=== PATIENT | male | born 1935 | race Two or more races ===

== ENCOUNTER 2024-11-19 17:14 | Inpatient (IN) | payer MEDICARE, OTHER ==
[~2024-11-19] VITALS: Ht 167.6 cm; Wt 58.7 kg
[~2024-11-19 17:14] MED LIST: ACET325T53 PO; APIX5TAB PO; ATOR10TA PO; CARV3.122 PO; DOCU-141 PO; FAMO-132 PO; Lactose-Free Food PO; MAGN400O6 PO; MULT-1045 PO; PANT40TA49 PO; SENN8.6T19 PO; TEMA15CA PO
[2024-11-19] MEDS: AZITHROMYCIN IV 500 MG in IV DEXTROSE 5% 250 ML IV ONE (17:30)
[2024-11-19] MEDS ORDERED: ACET325T53 PO (17:43)
[2024-11-19] MEDS ORDERED: ACET500C4 PO (17:43)
[2024-11-19] MEDS ORDERED: AMIO100T4 PO (17:44)
[2024-11-19] MEDS ORDERED: ATOR80TA PO (17:45)
[2024-11-19] MEDS ORDERED: MIDO2.5T PO (17:46)
[2024-11-19] MEDS ORDERED: DOCU100C36 PO (17:47)
[2024-11-19] MEDS ORDERED: BISA10SU95 RC (17:49)
[2024-11-19] MEDS ORDERED: NA P230E RC (17:50)
[2024-11-19] MEDS ORDERED: MAGN400O6 PO (17:51)
[2024-11-19] MEDS ORDERED: MULT-594 PO (17:53)
[2024-11-19] MEDS ORDERED: POLY17PO4 PO (17:53)
[2024-11-19] MEDS ORDERED: PANT40TA49 PO (17:54)
[2024-11-19 17:58] LABS: ABG BASE EXCESS -0.6 mmol/L (-2.0-3.0); ABG HCO3 21.2 mmol/L (21.0-28.0); ABG PCO2 26.8 mmHg (35.0-48.0); ABG PH 7.517 (7.350-7.450); ABG PO2 114.6 mmHg (83.0-108.0); ABG SITE LEFT RADIAL; ABG TOTAL HEMOGLOBIN 11.3 G/dL (13.5-17.5); AaDO2 98.6 mmHg; FIO2 28.0 %; FLOW, BLOOD GAS 2.00 L/min (0.00-30.00)
[2024-11-19] MEDS ORDERED: PROT946L PO (17:58)
[2024-11-19] MEDS ORDERED: CEFTRIAXONE /D5W 50ML IVPB **ER PYXIS IV ONE (17:59)
[2024-11-19] MEDS ORDERED: SACU1TAB PO (18:00)
[2024-11-19] MEDS ORDERED: SENN8.6C5 PO (18:00)
[2024-11-19] MEDS: IV NORMAL SALINE 1000 ML BAG IV ONE (18:04)
[2024-11-19] MEDS ORDERED: APIX2.5T PO (18:27)
[2024-11-19] MEDS ORDERED: MULT-213 PO (18:32)
[2024-11-19] MEDS ORDERED: AZITHROMYCIN 500MG/ D5W 250ML IVPB **ER PYXIS ONLY IV ONE (18:39)
[2024-11-19 18:47] LABS: *BILIRUBIN,URIN NEGATIVE (NEGATIVE); *BLOOD, URINE 3+ (NEGATIVE); *COLOR,URINE DARK YELLOW (YELLOW); *KETONES,URINE TRACE (NEGATIVE); *PROTEIN,URINE 2+ (NEGATIVE); *UROBILINOGEN,URINE 1.0 E.U./dl (NORMAL); LEUKOCYTE ESTERASE ,URINE 1+ (NEGATIVE); NITRITE, URINE POSITIVE (NEGATIVE); UGLUCOSE NEGATIVE (NEGATIVE)
[2024-11-19 18:52] LABS: *CLARITY,URINE HAZY (CLEAR)
[2024-11-19 18:55] LABS: SQUAMOUS EPITHELIAL CELL,UR MODERATE /HPF (NONE SEEN)
[2024-11-19] MEDS ORDERED: CLINDAMYCIN 600 MG PIGGYBACK**ER OMNI IV ONE (19:44)
[2024-11-19] MEDS: CLINDAMYCIN PHOSPHATE IV 600 MG in IV DEXTROSE 5% 100 ML IV ONE (19:55)
[2024-11-19 21:10] LABS: PLATELET COUNT (AUTO) 223 K/uL (152-348); RED BLOOD CELL COUNT(AUTO) 3.48 MIL/uL (4.06-5.63); RED CELL DISTRIBUTION WIDTH 16.0 % (12.1-16.2); WHITE BLOOD COUNT (AUTO) 7.8 K/uL (3.6-10.2)
[2024-11-19 21:18] LABS: CREATININE 1.3 mg/dL (0.6-1.3); SODIUM SERUM 140 mmol/L (136-145); UREA NITROGEN, BLOOD 43 mg/dL (7-18)
[2024-11-19 21:24] LABS: ASPARTATE AMINOTRANSFERASE 89 U/L (15-37); TOTAL PROTEIN, SERUM 6.3 g/dL (6.4-8.2)
[2024-11-19 21:31] LABS: LACTIC ACID 5.4 mmol/L (0.4-2.0)
[2024-11-20] VITALS (15 sets, daily range): BP systolic 101–128; BP diastolic 55–73; TEMP 97.6–97.7; O2SAT 95–100
[2024-11-20] MEDS ORDERED: FUROSEMIDE 20 MG/2 ML VIAL ONE (00:16)
[2024-11-20] MEDS: FUROSEMIDE 20 MG/2 ML VIAL IV ONE (00:23)
[2024-11-20] MEDS ORDERED: ONDANSETRON 4 MG/2 ML VIAL IV PRN (01:45)
[2024-11-20] MEDS ORDERED: REMEDY ESSENTIAL ZINC PASTE 113 GM TP PRN (01:45)
[2024-11-20] MEDS ORDERED: FUROSEMIDE 40 MG/4 ML VIAL ONE (03:15)
[2024-11-20] MEDS ORDERED: SODIUM BICARBONATE 8.4% 50 MEQ/50 ML DISP.SYRIN IV ONE ×2 (03:15→03:31)
[2024-11-20] MEDS: FUROSEMIDE 40 MG/4 ML VIAL IV ONE ×2 (03:18→06:22)
[2024-11-20] MEDS: SODIUM BICARBONATE 8.4% 50 MEQ/50 ML DISP.SYRIN IV ONE (03:35)
[2024-11-20 03:47] LABS: ABG BASE EXCESS -11.1 mmol/L (-2.0-3.0); ABG HCO3 15.4 mmol/L (21.0-28.0); ABG PCO2 36.8 mmHg (35.0-48.0); ABG PH 7.240 (7.350-7.450); ABG PO2 < 40.5 mmHg (83.0-108.0); ABG SITE LEFT FEMORAL; ABG TOTAL HEMOGLOBIN 11.5 G/dL (13.5-17.5); AaDO2 67.2 mmHg; SET RATE, BG 20.0
[2024-11-20 03:59] LABS: CREATININE 1.6 mg/dL (0.6-1.3); SODIUM SERUM 141 mmol/L (136-145); UREA NITROGEN, BLOOD 48 mg/dL (7-18)
[2024-11-20] MEDS ORDERED: VANCOMYCIN IV 200 ML ONE (05:41)
[2024-11-20] MEDS ORDERED: CEFEPIME HCL 2 GM VIAL ONE (05:41)
[2024-11-20] MEDS: CEFEPIME HCL 2 GM in IV DEXTROSE 5% 100 ML IV SCH (06:06)
[2024-11-20 06:32] LABS: PLATELET COUNT (AUTO) 193 K/uL (152-348); RED BLOOD CELL COUNT(AUTO) 3.91 MIL/uL (4.06-5.63); RED CELL DISTRIBUTION WIDTH 16.1 % (12.1-16.2); WHITE BLOOD COUNT (AUTO) 12.5 K/uL (3.6-10.2)
[2024-11-20] MEDS: VANCOMYCIN IV 1,000 MG in IV NORMAL SALINE 250 ML IV ONE (06:59)
[2024-11-20] MEDS ORDERED: ENOXAPARIN SODIUM 60 MG/0.6 ML DISP.SYRIN SQ SCH (09:00)
[2024-11-20] MEDS ORDERED: ENOXAPARIN SODIUM 40 MG/0.4 ML DISP.SYRIN SQ SCH (10:36)
[2024-11-20] MEDS ORDERED: ENOXAPARIN SODIUM 30 MG/0.3 ML DISP.SYRIN ONE (11:06)
[2024-11-20] MEDS: ENOXAPARIN SODIUM 30 MG/0.3 ML DISP.SYRIN SUBCUT SCH (11:23)
[2024-11-20] MEDS: FUROSEMIDE 40 MG/4 ML VIAL IV SCH (13:14)
[2024-11-20] MEDS: AZITHROMYCIN IV 250 MG in IV DEXTROSE 5% 250 ML IV SCH (16:20)
[2024-11-20] MEDS: PIPERACILLIN SODIUM/TAZOBACTAM 3.375 G in IV DEXTROSE 5% 50 ML IV SCH (18:00)
[2024-11-20 21:17] LABS: CREATININE 1.8 mg/dL (0.6-1.3); SODIUM SERUM 142 mmol/L (136-145); TOTAL PROTEIN, SERUM 6.4 g/dL (6.4-8.2); UREA NITROGEN, BLOOD 58 mg/dL (7-18)
[2024-11-20 22:09] LABS: ASPARTATE AMINOTRANSFERASE 4250 U/L (15-37)
[2024-11-21] VITALS (26 sets, daily range): BP systolic 102–125; BP diastolic 50–75; TEMP 97.7–98.1; O2SAT 94–100
[2024-11-21] MEDS: PIPERACILLIN SODIUM/TAZOBACTAM 3.375 G in IV DEXTROSE 5% 100 ML IV SCH (01:22)
[2024-11-21 05:24] LABS: PLATELET COUNT (AUTO) 194 K/uL (152-348); RED BLOOD CELL COUNT(AUTO) 4.12 MIL/uL (4.06-5.63); RED CELL DISTRIBUTION WIDTH 15.1 % (12.1-16.2); WHITE BLOOD COUNT (AUTO) 10.2 K/uL (3.6-10.2)
[2024-11-21 05:43] LABS: LACTIC ACID 2.7 mmol/L (0.4-2.0)
[2024-11-21 05:47] LABS: ASPARTATE AMINOTRANSFERASE 1158 U/L (15-37); CREATINE KINASE, TOTAL 518 U/L (39-308); CREATININE 1.8 mg/dL (0.6-1.3); SODIUM SERUM 142 mmol/L (136-145); TOTAL PROTEIN, SERUM 6.6 g/dL (6.4-8.2); UREA NITROGEN, BLOOD 59 mg/dL (7-18)
[2024-11-21] MEDS ORDERED: FUROSEMIDE 40 MG/4 ML VIAL IV SCH (09:00)
[2024-11-21] MEDS: FUROSEMIDE 40 MG/4 ML VIAL IV SCH (09:18)
[2024-11-21 13:35] LABS: ABG BASE EXCESS 0.9 mmol/L (-2.0-3.0); ABG HCO3 22.9 mmol/L (21.0-28.0); ABG PCO2 28.3 mmHg (35.0-48.0); ABG PH 7.526 (7.350-7.450); ABG PO2 118.1 mmHg (83.0-108.0); ABG SITE LEFT RADIAL; ABG TOTAL HEMOGLOBIN 11.3 G/dL (13.5-17.5); AaDO2 98.7 mmHg; FIO2 40.0 %; FLOW, BLOOD GAS 5.00 L/min (0.00-30.00)
[2024-11-21] MEDS: DEXTROSE 5% IV SCH (14:01)
[2024-11-21] MEDS: CEFEPIME IV SCH (14:01)
[2024-11-21 14:20] LABS: HIV-1/2 ANTIBODY NON REACTIVE (NONREACTIVE)
[2024-11-21] MEDS: VANCOMYCIN HCL 750 MG in IV DEXTROSE 5% 250 ML IV SCH (19:09)
[2024-11-22] VITALS (68 sets, daily range): BP systolic 72–121; BP diastolic 30–72; TEMP 97.8–98.1; O2SAT 100
[2024-11-22 03:09] LABS: PTH, INTACT 52 pg/mL (15-65)
[2024-11-22 05:11] LABS: PLATELET COUNT (AUTO) 230 K/uL (152-348); RED BLOOD CELL COUNT(AUTO) 4.11 MIL/uL (4.06-5.63); RED CELL DISTRIBUTION WIDTH 15.0 % (12.1-16.2); WHITE BLOOD COUNT (AUTO) 9.5 K/uL (3.6-10.2)
[2024-11-22 05:29] LABS: ASPARTATE AMINOTRANSFERASE 2011 U/L (15-37); CREATININE 2.0 mg/dL (0.6-1.3); SODIUM SERUM 144 mmol/L (136-145); TOTAL PROTEIN, SERUM 6.7 g/dL (6.4-8.2); UREA NITROGEN, BLOOD 54 mg/dL (7-18)
[2024-11-22 06:04] LABS: ABG BASE EXCESS 3.5 mmol/L (-2.0-3.0); ABG HCO3 26.3 mmol/L (21.0-28.0); ABG PCO2 34.0 mmHg (35.0-48.0); ABG PH 7.507 (7.350-7.450); ABG PO2 64.8 mmHg (83.0-108.0); ABG SITE LEFT RADIAL; ABG TOTAL HEMOGLOBIN 12.5 G/dL (13.5-17.5); AaDO2 94.6 mmHg; FIO2 21.0 %
[2024-11-22] MEDS: DOBUTamine IV 250 ML IV PRN (09:15)
[2024-11-22] MEDS: MEROPENEM 500 MG in IV NORMAL SALINE 50 ML IV SCH (11:08)
[2024-11-22] MEDS: POTASSIUM CHLORIDE 10 MEQ TAB.PRT.SR PO ONE (11:32)
[2024-11-22] MEDS ORDERED: MEROPENEM 500 MG in IV NORMAL SALINE 50 ML IV SCH (14:00)
[2024-11-22] MEDS: NOREPINEPHRINE 8MG/NS 250ML 250 ML IV PRN (16:49)
[2024-11-22 23:11] LABS: HEPATITIS A AB, IgM Negative (Negative); HEPATITIS B CORE AB, TOTAL Negative (Negative); HEPATITIS B SURFACE AB, QUAL Non Reactive (.); HEPATITIS B SURFACE AG Negative (Negative); HEPATITIS C VIRUS ANTIBODY Non Reactive (Non Reactive)
[2024-11-23] VITALS (97 sets, daily range): BP systolic 79–126; BP diastolic 40–89; TEMP 97.8–99.6; O2SAT 93–100
[2024-11-23 05:21] LABS: PLATELET COUNT (AUTO) 226 K/uL (152-348); RED BLOOD CELL COUNT(AUTO) 3.84 MIL/uL (4.06-5.63); RED CELL DISTRIBUTION WIDTH 14.8 % (12.1-16.2); WHITE BLOOD COUNT (AUTO) 8.6 K/uL (3.6-10.2)
[2024-11-23 05:27] LABS: CREATININE 1.5 mg/dL (0.6-1.3); SODIUM SERUM 146 mmol/L (136-145); UREA NITROGEN, BLOOD 64 mg/dL (7-18)
[2024-11-23 05:51] LABS: ASPARTATE AMINOTRANSFERASE 1578.0 U/L (15-37); TOTAL PROTEIN, SERUM 6.3 g/dL (6.4-8.2)
[2024-11-23] MEDS: DOBUTamine IV 250 ML IV PRN (06:44)
[2024-11-23] MEDS: POTASSIUM CHLORIDE 50 ML IV SCH (08:16)
[2024-11-23] MEDS: MEROPENEM 1 G in IV NORMAL SALINE 100 ML IV SCH (10:49)
[2024-11-23] MEDS ORDERED: DOCUSATE SODIUM 100 MG CAPSULE PO PRN (12:00)
[2024-11-23] MEDS ORDERED: BISACODYL 10 MG SUPP.RECT RC PRN (12:00)
[2024-11-23] MEDS: AMIODARONE HCL 200 MG TABLET PO SCH (12:37)
[2024-11-23] MEDS: APIXABAN 2.5 MG TABLET PO SCH (12:38)
[2024-11-23] MEDS: MIDODRINE HCL 2.5 MG TABLET PO SCH (14:03)
[2024-11-23] MEDS ORDERED: DOBUTamine IV 250 ML IV PRN ×2 (18:45)
[2024-11-24] VITALS (97 sets, daily range): BP systolic 95–134; BP diastolic 47–105; TEMP 97.8–99; O2SAT 92–100
[2024-11-24 05:01] LABS: PLATELET COUNT (AUTO) 242 K/uL (152-348); RED BLOOD CELL COUNT(AUTO) 4.02 MIL/uL (4.06-5.63); RED CELL DISTRIBUTION WIDTH 15.2 % (12.1-16.2); WHITE BLOOD COUNT (AUTO) 9.9 K/uL (3.6-10.2)
[2024-11-24 05:05] LABS: CREATININE 1.5 mg/dL (0.6-1.3); SODIUM SERUM 149 mmol/L (136-145); UREA NITROGEN, BLOOD 59 mg/dL (7-18)
[2024-11-24] MEDS: DOBUTamine IV 250 ML IV PRN (08:53)
[2024-11-24] MEDS: ACETAMINOPHEN 325 MG TABLET PO PRN (09:38)
[2024-11-24] MEDS: HYDROCODONE/APAP 5-325MG TABLET PO PRN (14:17)
[2024-11-25] VITALS (92 sets, daily range): BP systolic 96–136; BP diastolic 39–120; TEMP 96.5–98.9; O2SAT 87–100
[2024-11-25 05:05] LABS: PLATELET COUNT (AUTO) 251 K/uL (152-348); RED BLOOD CELL COUNT(AUTO) 4.23 MIL/uL (4.06-5.63); RED CELL DISTRIBUTION WIDTH 15.1 % (12.1-16.2); WHITE BLOOD COUNT (AUTO) 8.7 K/uL (3.6-10.2)
[2024-11-25 05:19] LABS: CREATININE 1.3 mg/dL (0.6-1.3); SODIUM SERUM 150 mmol/L (136-145); UREA NITROGEN, BLOOD 57 mg/dL (7-18)
[2024-11-25 05:30] LABS: ASPARTATE AMINOTRANSFERASE 493.0 U/L (15-37); TOTAL PROTEIN, SERUM 7.1 g/dL (6.4-8.2)
[2024-11-25] MEDS: IV D5W 1000ML 1,000 ML IV PRN (12:04)
[2024-11-25] MEDS ORDERED: HEPARIN/D5W 25000 UNITS/500 ML BAG IV ONE (18:45)
[2024-11-25] MEDS: IV NORMAL SALINE 500 ML IV ONE (19:23)
[2024-11-25] MEDS ORDERED: IOHEXOL 350 100 ML INFUS..BTL ONE (19:30)
[2024-11-25] MEDS: HEPARIN SODIUM,PORCINE 5,000 UNITS/ML VIAL IV ONE (20:13)
[2024-11-25] MEDS: HEPARIN/D5W DRIP 500 ML IV PRN (20:23)
[2024-11-26] VITALS (98 sets, daily range): BP systolic 100–141; BP diastolic 54–124; TEMP 97.7–99.2; O2SAT 92–100
[2024-11-26 03:55] LABS: PLATELET COUNT (AUTO) 201 K/uL (152-348); RED BLOOD CELL COUNT(AUTO) 3.79 MIL/uL (4.06-5.63); RED CELL DISTRIBUTION WIDTH 15.0 % (12.1-16.2); WHITE BLOOD COUNT (AUTO) 13.5 K/uL (3.6-10.2)
[2024-11-26 04:13] LABS: CREATININE 1.4 mg/dL (0.6-1.3); SODIUM SERUM 147 mmol/L (136-145); UREA NITROGEN, BLOOD 62 mg/dL (7-18)
[2024-11-26] MEDS: MORPHINE SULFATE 2 MG/1 ML DISP.SYRIN IV PRN (07:52)
[2024-11-27] VITALS (98 sets, daily range): BP systolic 74–140; BP diastolic 40–113; TEMP 97.9–100.1; O2SAT 92–100
[2024-11-27 05:25] LABS: PLATELET COUNT (AUTO) 233 K/uL (152-348); RED BLOOD CELL COUNT(AUTO) 4.13 MIL/uL (4.06-5.63); RED CELL DISTRIBUTION WIDTH 15.4 % (12.1-16.2); WHITE BLOOD COUNT (AUTO) 13.3 K/uL (3.6-10.2)
[2024-11-27 05:39] LABS: CREATININE 1.2 mg/dL (0.6-1.3); SODIUM SERUM 148 mmol/L (136-145); UREA NITROGEN, BLOOD 57 mg/dL (7-18)
[2024-11-27] MEDS: POTASSIUM CHLORIDE 50 ML IV SCH (08:33)
[2024-11-27] MEDS: ARGININE/GLUTAMINE/CALCIUM BMB 1 EACH POWD.PACK PO SCH (16:48)
[2024-11-28] VITALS (49 sets, daily range): BP systolic 88–150; BP diastolic 44–130; TEMP 98.1–98.6; O2SAT 80–100
[2024-11-28 05:05] LABS: PLATELET COUNT (AUTO) 222 K/uL (152-348); RED BLOOD CELL COUNT(AUTO) 4.26 MIL/uL (4.06-5.63); RED CELL DISTRIBUTION WIDTH 15.4 % (12.1-16.2); WHITE BLOOD COUNT (AUTO) 17.0 K/uL (3.6-10.2)
[2024-11-28 05:18] LABS: ASPARTATE AMINOTRANSFERASE 230 U/L (15-37); CREATININE 1.5 mg/dL (0.6-1.3); SODIUM SERUM 147 mmol/L (136-145); TOTAL PROTEIN, SERUM 6.4 g/dL (6.4-8.2); UREA NITROGEN, BLOOD 64 mg/dL (7-18)
[2024-11-28] MEDS: FUROSEMIDE 40 MG/4 ML VIAL IV SCH (10:09)
[2024-11-28] MEDS: POTASSIUM CHLORIDE 20 MEQ POWDER PACKET PO ONE (10:59)
[2024-11-28] MEDS ORDERED: MAGNESIUM HYDROXIDE 30 ML LIQUID UDC PO PRN (13:00)
[2024-11-28] MEDS ORDERED: BISACODYL 10 MG SUPP.RECT RC PRN (13:00)
[2024-11-28] MEDS: APIXABAN 5 MG TABLET PO SCH (16:16)
[2024-11-29] VITALS (18 sets, daily range): BP systolic 104–174; BP diastolic 47–126; TEMP 97.6–98.4; O2SAT 91–100
[2024-11-29 05:09] LABS: PLATELET COUNT (AUTO) 190 K/uL (152-348); RED BLOOD CELL COUNT(AUTO) 4.53 MIL/uL (4.06-5.63); RED CELL DISTRIBUTION WIDTH 15.5 % (12.1-16.2); WHITE BLOOD COUNT (AUTO) 14.5 K/uL (3.6-10.2)
[2024-11-29 05:23] LABS: ASPARTATE AMINOTRANSFERASE 237 U/L (15-37); CREATININE 1.5 mg/dL (0.6-1.3); SODIUM SERUM 143 mmol/L (136-145); TOTAL PROTEIN, SERUM 7.2 g/dL (6.4-8.2); UREA NITROGEN, BLOOD 71 mg/dL (7-18)
[2024-11-30] VITALS (10 sets, daily range): BP systolic 93–129; BP diastolic 19–78; TEMP 98.2–99.6; O2SAT 90–100
[2024-11-30] MEDS: BUMETANIDE 1 MG TABLET PO SCH (09:24)
[2024-11-30 09:36] LABS: PLATELET COUNT (AUTO) 199 K/uL (152-348); RED BLOOD CELL COUNT(AUTO) 4.11 MIL/uL (4.06-5.63); RED CELL DISTRIBUTION WIDTH 15.7 % (12.1-16.2); WHITE BLOOD COUNT (AUTO) 17.0 K/uL (3.6-10.2)
[2024-11-30 09:53] LABS: CREATININE 1.1 mg/dL (0.6-1.3); SODIUM SERUM 148 mmol/L (136-145); UREA NITROGEN, BLOOD 61 mg/dL (7-18)
[2024-11-30 15:56] LABS: FREE PSA 0.16 ng/mL (0.00-45)
[2024-11-30 16:06] LABS: A/G RATIO 0.7 (0.7-1.7); BETA GLOBULIN 0.8 g/dL (0.7-1.3); GLOBULIN, TOTAL 3.6 g/dL (2.2-3.9); M-SPIKE Not Observed g/dL (Not Observed); PROTEIN, TOTAL 6.1 g/dL (6.0-8.5)
[2024-12-01] VITALS (8 sets, daily range): BP systolic 94–138; BP diastolic 50–63; TEMP 97–99.6; O2SAT 93–99
[2024-12-01 07:16] LABS: PLATELET COUNT (AUTO) 222 K/uL (152-348); RED BLOOD CELL COUNT(AUTO) 4.28 MIL/uL (4.06-5.63); RED CELL DISTRIBUTION WIDTH 15.1 % (12.1-16.2); WHITE BLOOD COUNT (AUTO) 18.8 K/uL (3.6-10.2)
[2024-12-01 07:40] LABS: ASPARTATE AMINOTRANSFERASE 256 U/L (15-37); CREATININE 1.1 mg/dL (0.6-1.3); SODIUM SERUM 153 mmol/L (136-145); TOTAL PROTEIN, SERUM 6.6 g/dL (6.4-8.2); UREA NITROGEN, BLOOD 62 mg/dL (7-18)
[2024-12-01] MEDS: POTASSIUM CHLORIDE 20 MEQ POWDER PACKET PO ONE (10:49)
[2024-12-02] VITALS (8 sets, daily range): BP systolic 101–127; BP diastolic 44–60; TEMP 98.1–98.8; O2SAT 96–100
[2024-12-02 06:52] LABS: PLATELET COUNT (AUTO) 212 K/uL (152-348); RED BLOOD CELL COUNT(AUTO) 3.95 MIL/uL (4.06-5.63); RED CELL DISTRIBUTION WIDTH 15.4 % (12.1-16.2); WHITE BLOOD COUNT (AUTO) 18.2 K/uL (3.6-10.2)
[2024-12-02 07:09] LABS: CREATININE 0.9 mg/dL (0.6-1.3); UREA NITROGEN, BLOOD 61 mg/dL (7-18)
[2024-12-02 08:06] LABS: SODIUM SERUM 158 mmol/L (136-145)
[2024-12-02 09:25] LABS: ABG BASE EXCESS 10.3 mmol/L (-2.0-3.0); ABG HCO3 33.7 mmol/L (21.0-28.0); ABG PCO2 39.9 mmHg (35.0-48.0); ABG PH 7.544 (7.350-7.450); ABG PO2 95.9 mmHg (83.0-108.0); ABG SITE LEFT RADIAL; ABG TOTAL HEMOGLOBIN 13.0 G/dL (13.5-17.5); AaDO2 98.0 mmHg; FIO2 2.0 %; FLOW, BLOOD GAS 28.00 L/min (0.00-30.00)
[2024-12-02] MEDS: IV D5W 1000ML 1,000 ML IV PRN (09:52)
[2024-12-02] MEDS: POTASSIUM CHLORIDE 20 MEQ POWDER PACKET PO ONE (10:01)
[2024-12-03 04:37] VITALS: BP 123/50; TEMP 97.8; O2SAT 98
[2024-12-03 06:46] LABS: PLATELET COUNT (AUTO) 202 K/uL (152-348); RED BLOOD CELL COUNT(AUTO) 3.80 MIL/uL (4.06-5.63); RED CELL DISTRIBUTION WIDTH 15.7 % (12.1-16.2); WHITE BLOOD COUNT (AUTO) 16.2 K/uL (3.6-10.2)
[2024-12-03 07:09] LABS: ASPARTATE AMINOTRANSFERASE 208 U/L (15-37); CREATININE 0.8 mg/dL (0.6-1.3); SODIUM SERUM 153 mmol/L (136-145); TOTAL PROTEIN, SERUM 5.9 g/dL (6.4-8.2); UREA NITROGEN, BLOOD 53 mg/dL (7-18)
[2024-12-03 08:03] VITALS: BP 122/52; TEMP 97.7; O2SAT 98
[2024-12-03] MEDS: POTASSIUM CHLORIDE 50 ML IV SCH (10:18)
[2024-12-03] MEDS ORDERED: POTASSIUM PHOSPHATE MM 15 MMOL in IV NORMAL SALINE 250 ML IV ONE (11:00)
[2024-12-03] MEDS: POTASSIUM PHOSPHATE MM 15 MMOL in IV NORMAL SALINE 250 ML IV ONE (11:42)
[2024-12-03 11:50] VITALS: BP 113/50; TEMP 99; O2SAT 99
[2024-12-03 16:00] VITALS: BP 103/50; TEMP 98.5; O2SAT 100
[2024-12-03 19:31] VITALS: BP 102/28; TEMP 99.6; O2SAT 92
[2024-12-03 21:11] VITALS: O2SAT 98
[2024-12-04 05:40] VITALS: BP 105/51; TEMP 99.4; O2SAT 95
[2024-12-04 06:43] LABS: PLATELET COUNT (AUTO) 186 K/uL (152-348); RED BLOOD CELL COUNT(AUTO) 3.58 MIL/uL (4.06-5.63); RED CELL DISTRIBUTION WIDTH 15.6 % (12.1-16.2); WHITE BLOOD COUNT (AUTO) 14.1 K/uL (3.6-10.2)
[2024-12-04 07:09] LABS: CREATININE 0.9 mg/dL (0.6-1.3); SODIUM SERUM 135 mmol/L (136-145); UREA NITROGEN, BLOOD 44 mg/dL (7-18)
[2024-12-04] MEDS ORDERED: BUME1TAB8 PO (08:07)
[2024-12-04] MEDS ORDERED: APIX5TAB PO (08:07)
[2024-12-04] MEDS ORDERED: MIDO2.5T2 PO (08:07)
[2024-12-04] MEDS: POTASSIUM CHLORIDE 20 MEQ POWDER PACKET GT ONE (10:00)
[2024-12-04] MEDS: POTASSIUM CHLORIDE 50 ML IV SCH (10:01)
[2024-12-04 11:39] VITALS: BP 119/58; TEMP 98; O2SAT 97
[2024-12-04 14:30] VITALS: O2SAT 97
[2024-12-04 15:48] VITALS: BP 118/64; TEMP 99.2; O2SAT 94
[2024-12-05] MEDS ORDERED: APIXABAN 5 MG TABLET PO SCH (09:00)
== END 2024-12-04 17:40 | DRG 871 ==
LOC: ER 17:14 → TELE3 23:01 → TELE-TD3 11-20 05:22 → DOU3 11-20 05:23 → TELE-TD3 11-20 05:27 → DOU3 11-20 06:25 → TELE3 11-20 07:02 → CCUOV 11-20 12:13 → CCU 11-20 12:29 → TELE3 11-29 15:57 → MEDSURG3 12-03 14:08
PROVIDERS: ADMIT Registered Nurse Psychiatric/Mental Health; ATTEND Nurse Practitioner Family
PROC: 5A09457 Assistance with Respiratory Ventilation, 24-96 Consecutive Hours, Continuous Positive Airway Pressure (ICD-10-PCS; principal; 2024-11-20)
PROC: 05H933Z Insertion of Infusion Device into Right Brachial Vein, Percutaneous Approach (ICD-10-PCS; 2024-11-21)
PROC: 02HV33Z Insertion of Infusion Device into Superior Vena Cava, Percutaneous Approach (ICD-10-PCS; 2024-11-26)
DX: A41.9 Sepsis, unspecified organism (principal); I21.4 Non-ST elevation (NSTEMI) myocardial infarction; J15.69 Pneumonia due to other Gram-negative bacteria; J96.01 Acute respiratory failure with hypoxia; N17.0 Acute kidney failure with tubular necrosis; K72.00 Acute and subacute hepatic failure without coma; R65.21 Severe sepsis with septic shock; I50.23 Acute on chronic systolic (congestive) heart failure; J96.02 Acute respiratory failure with hypercapnia; R57.0 Cardiogenic shock; N39.0 Urinary tract infection, site not specified; Z16.12 Extended spectrum beta lactamase (ESBL) resistance; Z66 Do not resuscitate; E87.20 Acidosis, unspecified; F01.54 Vascular dementia, unspecified severity, with anxiety; F01.53 Vascular dementia, unspecified severity, with mood disturbance; E87.1 Hypo-osmolality and hyponatremia; E87.0 Hyperosmolality and hypernatremia; E44.0 Moderate protein-calorie malnutrition; I70.222 Atherosclerosis of native arteries of extremities with rest pain, left leg; B96.20 Unspecified Escherichia coli [E. coli] as the cause of diseases classified elsewhere; I11.0 Hypertensive heart disease with heart failure; I48.0 Paroxysmal atrial fibrillation; I25.10 Atherosclerotic heart disease of native coronary artery without angina pectoris; K21.9 Gastro-esophageal reflux disease without esophagitis; E88.09 Other disorders of plasma-protein metabolism, not elsewhere classified; I69.319 Unspecified symptoms and signs involving cognitive functions following cerebral infarction; N40.0 Benign prostatic hyperplasia without lower urinary tract symptoms; R26.81 Unsteadiness on feet; E87.6 Hypokalemia; E87.5 Hyperkalemia; I25.5 Ischemic cardiomyopathy; I08.3 Combined rheumatic disorders of mitral, aortic and tricuspid valves; I25.2 Old myocardial infarction; I99.8 Other disorder of circulatory system; R13.10 Dysphagia, unspecified; E86.0 Dehydration; E78.5 Hyperlipidemia, unspecified; Z95.0 Presence of cardiac pacemaker; Z87.891 Personal history of nicotine dependence; Z87.01 Personal history of pneumonia (recurrent); Z79.01 Long term (current) use of anticoagulants; Z79.899 Other long term (current) drug therapy; Z68.20 Body mass index [BMI] 20.0-20.9, adult
CPT/HCPCS: 36415; 36600; 71045; 71250; 73706; 76705; 76770; 82803; 83605; 83735; 83970; 84100; 84132; 84153; 84155; 84165; 84484; 85025; 85610; 85730; 86704; 86706; 86709; 86803; 87040; 87077; 87086; 87340; 87806; 93307; 94660; 99082-TC; A4606; A4663; A6209; G0378; J0456; J0692; J0696; J1644; J1650; J1938; J2185; J2270; J2543; J3373; J3480; J3490; J7040; J7050; J7070; Q9967